=== PATIENT | male | born 1990 | race American Indian/Alaskan Native ===

== ENCOUNTER 2017-12-10 03:58 | Emergency (ER) | payer OTHER ==
[2017-12-10 04:04] VITALS: BP 125/76
[2017-12-10] MEDS ORDERED: MOTRIN PO ONE ×2 (04:15→04:17)
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
[2017-12-10] MEDS ORDERED: TRIPLE ANTIBIOTIC TP ONE ×2 (06:10→06:16)
== END 2017-12-10 06:17 | disposition home or self-care (01) ==
LOC: ED 03:58
DX: S20.211A Contusion of right front wall of thorax, initial encounter (principal); F17.200 Nicotine dependence, unspecified, uncomplicated; V87.7XXA Person injured in collision between other specified motor vehicles (traffic), initial encounter; Y93.89 Activity, other specified; Y92.89 Other specified places as the place of occurrence of the external cause; Y99.8 Other external cause status
CPT/HCPCS: 93005; 93010; A6250